=== PATIENT | female | born 1965 | race Hispanic/Latino ===

== ENCOUNTER → 2025-09-06 | Day surgery (SDC) | payer OTHER ==
[~2025-09-06] MED LIST: GLUCAGON FOR INJ 1 MG VIAL ONE; GLYCOPYRROLATE INJ 0.2 MG/ML VIAL ONE; HYOSCYAMINE SULFATE 0.5 MG/ML INJ ONE; KETAMINE 50MG/5ML SYR ONE; LIDOCAINE HCL 2% LOCAL INJ 5 ML SDV VIAL INJ ONE; PROPOFOL IV EMULSION 10 MG/ML 20 ML VIAL ONE
[2025-09-06] MEDS: LACTATED RINGER'S 1,000 ML ONE (08:49)
[2025-09-06 10:38] VITALS: TEMP 97.5
[2025-09-06 11:10] VITALS: BP 126/94; PULSE 71; RESP 16; O2SAT 98
== END | disposition home or self-care (01) ==
LOC: OR 07:06
PROVIDERS: ATTEND Internal Medicine Gastroenterology
DX: Z12.11 Encounter for screening for malignant neoplasm of colon (principal); K64.8 Other hemorrhoids; R73.03 Prediabetes; Z01.810 Encounter for preprocedural cardiovascular examination
CPT/HCPCS: 45380; 93005; J1980; J2003; J2704; J7121; 45378; 45385; J1610